=== PATIENT | male | born 1955 | race Two or more races ===

== ENCOUNTER 2022-06-24 05:48 | Day surgery (SDC) | payer OTHER ==
[~2022-06-24] VITALS: Ht 162.6 cm; Wt 64.4 kg
[~2022-06-24 05:48] MED LIST: GLUMETZA500 MG PO; LIPITOR20 MG PO; ZESTRIL20 MG PO
[2022-06-24] MEDS ORDERED: PERCOCET 5-3251 EACH PO (08:32)
[2022-06-24] MEDS ORDERED: GABAPENTIN100 MG PO (08:33)
[2022-06-24] MEDS ORDERED: DERMOPLAST PAIN78 GM TOP (08:33)
== END 2022-06-24 13:50 | disposition home or self-care (01) ==
LOC: CIR.AMB 05:48
PROVIDERS: ATTEND Surgery
DX: D12.8 Benign neoplasm of rectum (principal); Z20.822 Contact with and (suspected) exposure to COVID-19; I10 Essential (primary) hypertension; E78.5 Hyperlipidemia, unspecified